=== PATIENT | male | born 1940 | race Caucasian/White ===

== ENCOUNTER 2019-05-25 09:28 | Inpatient (IN) ==
[2019-05-25 11:39] LABS: Basophils % 0.4 % (0.0-0.8); Eosinophils # 0.1 10*3/uL (0.0-0.87); Eosinophils % 1.4 % (0.00-10.9); Hematocrit 35.4 VOL% (42.0-52.0); Hemoglobin 11.5 GM/DL (14.0-18.0); Immature Granulocytes % 0.5 %; Immature Granulocytes Absolute 0.04 #; Lymphocytes # 1.4 10*3/uL (1.4-4.0); Lymphocytes % 17.6 % (21.2-54.2); Mean Corpuscular HGB Conc 32.5 GM/DL (32-36); Mean Corpuscular Volume 94.7 FL (87-102); Mean Platelet Volume 9.5 FL (9.6-12.0); Monocytes % 8.7 % (1.7-12.7); Neutrophils % 71.4 % (38.7-73.9); Platelet Count 241 T/CUMM (130-400); Red Blood Count 3.74 MC/CUMM (3.8-5.5); Red Cell Distribution Width 12.5 % (9.3-17.3); White Blood Count 7.7 T/CUMM (4-12)
[2019-05-25 11:47] LABS: INR 1.1; PT Patient Result 11.9 SECS (9.6-12.2)
[2019-05-25 11:58] LABS: Alanine Aminotransferase 17 U/L (16-61); Albumin 2.9 G/DL (3.4-5.0); Alkaline Phosphatase 99 U/L (45-117); Aspartate Amino Transferase 18 U/L (0-37); Blood Urea Nitrogen 19 MG/DL (7-18); Calcium 8.7 MG/DL (8.5-10.1); Estimated Glom Filtration Rate 76 ML/MIN; Glucose 145 MG/DL (74-106); Osmolality,Calculated 287.1 MOS/KG (273-304)
[2019-05-25 12:05] LABS: Apearance,Urine CLOUDY (Clear); Bilirubin,Urine Negative (Negative); Blood, Urine Small mg/dL (Negative); Glucose,Urine (UA) 50 mg/dL (Negative); Ketones,Urine Negative (Negative); Mucus,Urine Occasional /LPF (Occasional); Nitrite,Urine Negative (Negative); Protein,Urine 30 MG/DL; RBC,Urine 21 /HPF (0-4); Urine Color Yellow (Yellow); Urine Specific Gravity 1.019 (1.001-1.035); WBC,Urine 607 /HPF (0-6)
[2019-05-25 12:11] LABS: Barbiturates Screen,Urine Negative (Negative); Benzodiazepines Screen,Urine Negative (Negative); Cannabinoid Screen,Urine Negative (Negative); Opiate Screen,Urine Negative (Negative); Phencyclidine Screen,Urine Negative (Negative)
[2019-05-25] MEDS ORDERED: cefTRIAXone 1,000 MG in SODIUM CHLORIDE 0.9% 100 ML IV STA (12:16)
[2019-05-25] MEDS ORDERED: DOCUSATE SODIUM 100 MG CAPSULE PO PRN (13:21)
[2019-05-25] MEDS ORDERED: ACETAMINOPHEN 325 MG TABLET PO PRN (13:21)
[2019-05-25] MEDS ORDERED: BISACODYL 5 MG TABLET PO PRN (13:21)
[2019-05-25] MEDS ORDERED: GLUCAGON 1 MG VIAL IM PRN (13:21)
[2019-05-25] MEDS ORDERED: ONDANSETRON 4 MG/2 ML VIAL IV PRN (13:21)
[2019-05-25] MEDS ORDERED: DEXTROSE 10% 25 GM/250 ML BAG IV PRN (13:21)
[2019-05-25] MEDS ORDERED: MAGNESIUM SULF RIDER 4 GM in PREMIX 1 EACH IV PRN (13:24)
[2019-05-25] MEDS ORDERED: MAGNESIUM SULF RIDER 2 GM in PREMIX 1 EACH IV PRN (13:24)
[2019-05-25] MEDS: cefTRIAXone 1,000 MG in SYRINGE 1 EACH IV SCH (13:58)
[2019-05-25] MEDS: SODIUM CHLORIDE 0.9% 1,000 ML IV SCH (13:59)
[2019-05-25] MEDS ORDERED: POTASSIUM CHLORIDE 20 MEQ TABLET PO ONE (15:43)
[2019-05-25] MEDS ORDERED: INFLUENZA VIRUS VACCINE 0.5 ML SYRINGE IM ONE (15:48)
[2019-05-25] MEDS: metFORMIN 500 MG TABLET PO SCH (16:23)
[2019-05-25] MEDS: INSULIN REGULAR 100 UNIT/ML SUBCUT SCH ×2 (17:33→21:09)
[2019-05-25] MEDS: PANTOPRAZOLE 40 MG TABLET PO SCH (21:17)
[2019-05-26 05:05] LABS: Basophils % 0.4 % (0.0-0.8); Eosinophils # 0.2 10*3/uL (0.0-0.87); Eosinophils % 2.8 % (0.00-10.9); Hematocrit 30.7 VOL% (42.0-52.0); Hemoglobin 9.9 GM/DL (14.0-18.0); Immature Granulocytes % 0.5 %; Immature Granulocytes Absolute 0.04 #; Lymphocytes # 1.7 10*3/uL (1.4-4.0); Lymphocytes % 22.4 % (21.2-54.2); Mean Corpuscular HGB Conc 32.2 GM/DL (32-36); Mean Corpuscular Volume 94.5 FL (87-102); Mean Platelet Volume 10.1 FL (9.6-12.0); Monocytes % 9.5 % (1.7-12.7); Neutrophils % 64.4 % (38.7-73.9); Platelet Count 228 T/CUMM (130-400); Red Blood Count 3.25 MC/CUMM (3.8-5.5); Red Cell Distribution Width 12.5 % (9.3-17.3); White Blood Count 7.6 T/CUMM (4-12)
[2019-05-26 05:35] LABS: Calcium 8.4 MG/DL (8.5-10.1); Osmolality,Calculated 288.8 MOS/KG (273-304)
[2019-05-26] MEDS: SODIUM CHLORIDE 0.9% 1,000 ML IV SCH (07:48)
[2019-05-26] MEDS: INSULIN REGULAR 100 UNIT/ML SUBCUT SCH ×4 (07:49→20:23)
[2019-05-26] MEDS ORDERED: PANTOPRAZOLE 40 MG TABLET PO SCH (09:00)
[2019-05-26] MEDS: ATORVASTATIN 40 MG TABLET PO SCH (09:24)
[2019-05-26] MEDS: metFORMIN 500 MG TABLET PO SCH ×2 (09:24→17:05)
[2019-05-26] MEDS: METOPROLOL SUCCINATE XL 50 MG TABLET PO SCH (09:24)
[2019-05-26] MEDS: RIVAROXABAN 15 MG TABLET PO SCH (09:24)
[2019-05-26] MEDS: cefTRIAXone 1,000 MG in SYRINGE 1 EACH IV SCH (14:35)
[2019-05-26] MEDS: TAMSULOSIN 0.4 MG CAPSULE PO SCH (15:05)
[2019-05-26] MEDS ORDERED: VANCOMYCIN INJ 1,000 MG in SODIUM CHLORIDE 0.9% 250 ML IV SCH (16:00)
[2019-05-26] MEDS: PHENAZOPYRIDINE 95 MG TABLET PO SCH ×2 (16:11→16:38)
[2019-05-26] MEDS: PANTOPRAZOLE 40 MG TABLET PO SCH (20:49)
[2019-05-27 05:40] LABS: Calcium 8.4 MG/DL (8.5-10.1); Osmolality,Calculated 286.8 MOS/KG (273-304)
[2019-05-27] MEDS: PHENAZOPYRIDINE 95 MG TABLET PO SCH ×3 (08:31→16:58)
[2019-05-27] MEDS: ATORVASTATIN 40 MG TABLET PO SCH (08:32)
[2019-05-27] MEDS: METOPROLOL SUCCINATE XL 50 MG TABLET PO SCH (08:32)
[2019-05-27] MEDS: metFORMIN 500 MG TABLET PO SCH ×2 (08:32→16:58)
[2019-05-27] MEDS: TAMSULOSIN 0.4 MG CAPSULE PO SCH (08:32)
[2019-05-27] MEDS: RIVAROXABAN 15 MG TABLET PO SCH (08:32)
[2019-05-27] MEDS: INSULIN REGULAR 100 UNIT/ML SUBCUT SCH ×4 (08:37→21:19)
[2019-05-27] MEDS: cefTRIAXone 1,000 MG in SYRINGE 1 EACH IV SCH (14:45)
[2019-05-27] MEDS: NAFCILLIN 2,000 MG in SODIUM CHLORIDE 0.9% 100 ML IV SCH ×3 (16:59→23:55)
[2019-05-27] MEDS: PANTOPRAZOLE 40 MG TABLET PO SCH (21:18)
[2019-05-28] MEDS: NAFCILLIN 2,000 MG in SODIUM CHLORIDE 0.9% 100 ML IV SCH ×4 (04:19→15:05)
[2019-05-28] MEDS: INSULIN REGULAR 100 UNIT/ML SUBCUT SCH ×3 (07:58→17:29)
[2019-05-28] MEDS: PHENAZOPYRIDINE 95 MG TABLET PO SCH ×3 (08:52→17:28)
[2019-05-28] MEDS: metFORMIN 500 MG TABLET PO SCH ×2 (08:52→17:25)
[2019-05-28] MEDS: ATORVASTATIN 40 MG TABLET PO SCH (08:52)
[2019-05-28] MEDS: TAMSULOSIN 0.4 MG CAPSULE PO SCH (08:53)
[2019-05-28] MEDS: RIVAROXABAN 15 MG TABLET PO SCH (08:53)
[2019-05-28] MEDS: METOPROLOL SUCCINATE XL 50 MG TABLET PO SCH (08:53)
[2019-05-28 15:58] VITALS: BP 120/58
== END 2019-05-28 18:18 | DRG 689 ==
LOC: EDBD → EDUNIT# → N.ED 09:28 → N.EDINP 13:21 → SUATTDRO 13:21 → N.EDINP 14:51 → N.2E 15:02
PROVIDERS: ADMIT Internal Medicine; ATTEND Internal Medicine Nephrology

== ENCOUNTER 2019-08-21 20:04 | Inpatient (IN) ==
[2019-08-21] MEDS ORDERED: DIPH/TET/ACEL PERT BOOSTER VACCINE 0.5 ML VIAL IM ONE (20:39)
[2019-08-21] MEDS ORDERED: ceFAZolin 1,000 MG VIAL IM ONE (20:39)
[2019-08-21] MEDS ORDERED: SODIUM CHLORIDE 0.9% 500 ML IV STA (21:57)
[2019-08-21] MEDS ORDERED: ONDANSETRON 4 MG/2 ML VIAL IV STA (21:57)
[2019-08-21 22:06] LABS: Basophils % 0.4 % (0.0-0.8); Hematocrit 37.1 VOL% (42.0-52.0); Hemoglobin 12.3 GM/DL (14.0-18.0); Immature Granulocytes % 0.5 %; Immature Granulocytes Absolute 0.06 #; Lymphocytes # 0.8 10*3/uL (1.4-4.0); Lymphocytes % 6.9 % (21.2-54.2); Mean Corpuscular HGB Conc 33.2 GM/DL (32-36); Mean Corpuscular Volume 95.6 FL (87-102); Mean Platelet Volume 11.5 FL (9.6-12.0); Monocytes % 6.5 % (1.7-12.7); Neutrophils % 85.7 % (38.7-73.9); Platelet Count 171 T/CUMM (130-400); Red Blood Count 3.88 MC/CUMM (3.8-5.5); Red Cell Distribution Width 12.1 % (9.3-17.3)
[2019-08-21 22:15] LABS: INR 1.7
[2019-08-21 22:27] LABS: Platelet Estimate Normal
[2019-08-21 22:29] LABS: Microcytosis Slight
[2019-08-21 23:31] LABS: Apearance,Urine CLEAR (Clear); Bacteria,Urine Occasional /HPF (Few); Bilirubin,Urine Negative (Negative); Blood, Urine Negative (Negative); Glucose,Urine (UA) Negative (Negative); Ketones,Urine 5 mg/dL (Negative); Mucus,Urine Occasional /LPF (Occasional); Nitrite,Urine Negative (Negative); Protein,Urine Negative; Squamous Epithelial Cell,Urine Occasional /HPF (0-10); Urine Color Yellow (Yellow); WBC,Urine 1 /HPF (0-6)
[2019-08-21] MEDS ORDERED: ZALEPLON 5 MG CAPSULE PO PRN (23:40)
[2019-08-21] MEDS ORDERED: ONDANSETRON 4 MG/2 ML VIAL IV PRN (23:40)
[2019-08-21] MEDS ORDERED: PROMETHAZINE 25 MG TABLET PO PRN (23:40)
[2019-08-21] MEDS ORDERED: diphenhydrAMINE CAP 25 MG CAPSULE PO PRN (23:40)
[2019-08-21] MEDS ORDERED: ACETAMINOPHEN 325 MG TABLET PO PRN (23:40)
[2019-08-21] MEDS ORDERED: guaiFENesin/DM ER 600-30 MG TABLET PO PRN (23:40)
[2019-08-21] MEDS ORDERED: DOCUSATE SODIUM 100 MG CAPSULE PO PRN (23:40)
[2019-08-22 01:14] LABS: Basophils % 0.3 % (0.0-0.8); Eosinophils % 0.1 % (0.00-10.9); Hematocrit 33.8 VOL% (42.0-52.0); Hemoglobin 11.2 GM/DL (14.0-18.0); Immature Granulocytes % 0.4 %; Immature Granulocytes Absolute 0.04 #; Lymphocytes # 1.1 10*3/uL (1.4-4.0); Mean Corpuscular HGB Conc 33.1 GM/DL (32-36); Mean Corpuscular Volume 95.5 FL (87-102); Mean Platelet Volume 10.2 FL (9.6-12.0); Monocytes % 6.6 % (1.7-12.7); Neutrophils % 80.6 % (38.7-73.9); Platelet Count 158 T/CUMM (130-400); Red Blood Count 3.54 MC/CUMM (3.8-5.5); Red Cell Distribution Width 11.6 % (9.3-17.3)
[2019-08-22] MEDS ORDERED: hydrALAZINE 20 MG/1 ML VIAL IV PRN (01:21)
[2019-08-22] MEDS ORDERED: GLUCAGON 1 MG VIAL IM PRN (01:25)
[2019-08-22] MEDS ORDERED: DEXTROSE 50% 25 GM/50 ML VIAL IV PRN (01:25)
[2019-08-22 01:29] LABS: Osmolality,Calculated 287.1 MOS/KG (273-304)
[2019-08-22 01:57] LABS: Albumin 2.7 G/DL (3.4-5.0); Bilirubin,Total 0.7 MG/DL (0.2-1.0); Osmolality,Calculated 283.4 MOS/KG (273-304); Total Protein 6.2 G/DL (6.4-8.3)
[2019-08-22] MEDS: INSULIN LISPRO 100 UNIT/ML SUBCUT SCH ×4 (07:53→20:51)
[2019-08-22] MEDS ORDERED: PANTOPRAZOLE 40 MG TABLET PO SCH (09:00)
[2019-08-22] MEDS ORDERED: ceFAZolin 1,000 MG in SYRINGE 1 EACH IV ONE (12:00)
[2019-08-22] MEDS ORDERED: LIDOCAINE 2% 5 ML VIAL ONE (13:09)
[2019-08-22] MEDS ORDERED: SUCCINYLCHOLINE 200 MG/10 ML VIAL ONE (13:09)
[2019-08-22] MEDS ORDERED: ETOMIDATE 40 MG/20 ML VIAL IV ONE (13:09)
[2019-08-22] MEDS ORDERED: ACETAMINOPHEN 1,000 MG/100 ML VIAL IV ONE (13:09)
[2019-08-22] MEDS ORDERED: ROCURONIUM 100 MG/10 ML VIAL IV ONE (13:09)
[2019-08-22] MEDS ORDERED: SEVOFLURANE 1 UNIT/15 MINUTE INH ONE (13:09)
[2019-08-22] MEDS ORDERED: fentaNYL 100 MCG/2 ML VIAL ONE (13:09)
[2019-08-22] MEDS ORDERED: ONDANSETRON 4 MG/2 ML VIAL ONE (13:09)
[2019-08-22] MEDS: ceFAZolin 1,000 MG in SYRINGE 1 EACH IV SCH ×2 (15:11→23:40)
[2019-08-22] MEDS: POTASSIUM CHLORIDE 20 MEQ TABLET PO PRN ×3 (15:11→20:47)
[2019-08-22] MEDS: TAMSULOSIN 0.4 MG CAPSULE PO SCH (15:11)
[2019-08-22] MEDS ORDERED: metFORMIN 500 MG TABLET PO SCH (17:00)
[2019-08-22] MEDS: ATORVASTATIN 40 MG TABLET PO SCH (20:46)
[2019-08-23 05:53] LABS: Basophils % 0.5 % (0.0-0.8); Eosinophils # 0.1 10*3/uL (0.0-0.87); Eosinophils % 1.4 % (0.00-10.9); Hematocrit 33.2 VOL% (42.0-52.0); Immature Granulocytes % 0.3 %; Immature Granulocytes Absolute 0.02 #; Lymphocytes % 12.5 % (21.2-54.2); Mean Corpuscular HGB Conc 33.1 GM/DL (32-36); Mean Corpuscular Volume 94.9 FL (87-102); Mean Platelet Volume 10.6 FL (9.6-12.0); Monocytes % 6.8 % (1.7-12.7); Neutrophils % 78.5 % (38.7-73.9); Platelet Count 159 T/CUMM (130-400); Red Cell Distribution Width 11.8 % (9.3-17.3); White Blood Count 7.8 T/CUMM (4-12)
[2019-08-23 06:09] LABS: Calcium 7.8 MG/DL (8.5-10.1); Osmolality,Calculated 284.3 MOS/KG (273-304)
[2019-08-23] MEDS: INSULIN LISPRO 100 UNIT/ML SUBCUT SCH ×4 (08:07→21:03)
[2019-08-23] MEDS: ceFAZolin 1,000 MG in SYRINGE 1 EACH IV SCH (09:12)
[2019-08-23] MEDS: TAMSULOSIN 0.4 MG CAPSULE PO SCH (10:12)
[2019-08-23] MEDS: METOPROLOL SUCCINATE XL 50 MG TABLET PO SCH (10:12)
[2019-08-23] MEDS: PANTOPRAZOLE 40 MG TABLET PO SCH (10:12)
[2019-08-23] MEDS: RIVAROXABAN 15 MG TABLET PO SCH (10:12)
[2019-08-23] MEDS ORDERED: POTASSIUM CHLORIDE 20 MEQ TABLET PO ONE (16:08)
[2019-08-23] MEDS: ATORVASTATIN 40 MG TABLET PO SCH (21:04)
[2019-08-23] MEDS: ZINC OXIDE PASTE 113 GM TUBE TOP SCH (21:06)
[2019-08-24 06:11] LABS: Basophils % 0.4 % (0.0-0.8); Eosinophils # 0.2 10*3/uL (0.0-0.87); Hematocrit 30.7 VOL% (42.0-52.0); Hemoglobin 10.3 GM/DL (14.0-18.0); Immature Granulocytes % 0.4 %; Immature Granulocytes Absolute 0.03 #; Lymphocytes # 1.1 10*3/uL (1.4-4.0); Lymphocytes % 13.2 % (21.2-54.2); Mean Corpuscular HGB Conc 33.6 GM/DL (32-36); Mean Corpuscular Volume 94.8 FL (87-102); Mean Platelet Volume 10.3 FL (9.6-12.0); Platelet Count 157 T/CUMM (130-400); Red Blood Count 3.24 MC/CUMM (3.8-5.5); Red Cell Distribution Width 11.6 % (9.3-17.3)
[2019-08-24 06:21] LABS: Calcium 7.7 MG/DL (8.5-10.1); Osmolality,Calculated 278.5 MOS/KG (273-304)
[2019-08-24] MEDS ORDERED: POTASSIUM CHLORIDE 20 MEQ TABLET PO ONE ×2 (08:05→11:59)
[2019-08-24] MEDS: INSULIN LISPRO 100 UNIT/ML SUBCUT SCH ×2 (09:02→11:25)
[2019-08-24] MEDS: TAMSULOSIN 0.4 MG CAPSULE PO SCH (09:23)
[2019-08-24] MEDS: METOPROLOL SUCCINATE XL 50 MG TABLET PO SCH (09:23)
[2019-08-24] MEDS: PANTOPRAZOLE 40 MG TABLET PO SCH (09:23)
[2019-08-24] MEDS: RIVAROXABAN 15 MG TABLET PO SCH (09:23)
[2019-08-24] MEDS: ZINC OXIDE PASTE 113 GM TUBE TOP SCH (11:31)
[2019-08-24 13:04] VITALS: BP 146/45
== END 2019-08-24 15:50 | DRG 481 ==
LOC: EDUNIT# → EDBD → N.ED 20:04 → N.EDINP 23:40 → N.3E 08-22 00:40
PROVIDERS: ADMIT Internal Medicine; ATTEND Internal Medicine

== ENCOUNTER 2019-12-02 09:19 | Inpatient (IN) ==
[2019-12-02] MEDS ORDERED: SODIUM CHLORIDE 0.9% 500 ML IV STA (09:41)
[2019-12-02 10:35] LABS: Hematocrit 37.7 VOL% (42.0-52.0); Hemoglobin 12.2 GM/DL (14.0-18.0); Mean Corpuscular HGB Conc 32.4 GM/DL (32-36); Mean Corpuscular Volume 93.8 FL (87-102); Red Blood Count 4.02 MC/CUMM (3.8-5.5); Red Cell Distribution Width 12.6 % (9.3-17.3); White Blood Count 8.3 T/CUMM (4-12)
[2019-12-02 10:36] LABS: Basophils % 0.4 % (0.0-0.8); Eosinophils # 0.1 10*3/uL (0.0-0.87); Eosinophils % 1.2 % (0.00-10.9); Immature Granulocytes % 0.5 %; Immature Granulocytes Absolute 0.04 #; Lymphocytes # 1.2 10*3/uL (1.4-4.0); Lymphocytes % 14.4 % (21.2-54.2); Mean Platelet Volume 9.8 FL (9.6-12.0); Monocytes % 5.4 % (1.7-12.7); Neutrophils % 78.1 % (38.7-73.9); Platelet Count 207 T/CUMM (130-400)
[2019-12-02 10:42] LABS: Apearance,Urine CLEAR (Clear); Bilirubin,Urine Negative (Negative); Blood, Urine Small mg/dL (Negative); Glucose,Urine (UA) Negative (Negative); Ketones,Urine Negative (Negative); Mucus,Urine Occasional /LPF (Occasional); Nitrite,Urine Negative (Negative); Protein,Urine Negative; RBC,Urine 4 /HPF (0-4); Urine Color Yellow (Yellow); Urine Urobilinogen < 2.0 EU/DL (0.2-1.0); WBC,Urine <1 /HPF (0-6)
[2019-12-02 10:48] LABS: INR 1.3; PT Patient Result 13.3 SECS (9.8-11.9); Partial Thromboplastin Time 40.2 SECS (23.9-33.8)
[2019-12-02 10:51] LABS: Barbiturates Screen,Urine Negative (Negative); Benzodiazepines Screen,Urine Negative (Negative); Cannabinoid Screen,Urine Negative (Negative); Opiate Screen,Urine Negative (Negative); Phencyclidine Screen,Urine Negative (Negative)
[2019-12-02 12:19] LABS: Alanine Aminotransferase 19 U/L (16-61); Albumin 3.4 G/DL (3.4-5.0); Alkaline Phosphatase 107 U/L (45-117); Aspartate Amino Transferase 18 U/L (0-37); Blood Urea Nitrogen 16 MG/DL (7-18); Calcium 8.3 MG/DL (8.5-10.1); Estimated Glom Filtration Rate 0 ML/MIN; Ferritin 360.4 ng/ml (26-388); Glucose 103 MG/DL (74-106); Osmolality,Calculated 275.7 MOS/KG (273-304); Total Protein 7.3 G/DL (6.4-8.3); Troponin I < 0.015 NG/ML (0.00-0.045)
[2019-12-02] MEDS ORDERED: LABETALOL 20 MG/4 ML SYRINGE IV PRN (13:29)
[2019-12-02] MEDS ORDERED: DOCUSATE SODIUM 100 MG CAPSULE PO PRN (13:50)
[2019-12-02 14:04] LABS: VLDL CHOLESTEROL 22.2 MG/DL
[2019-12-02] MEDS: ENOXAPARIN 40 MG/0.4 ML SYRINGE SUBCUT SCH (14:15)
[2019-12-03] MEDS: RIVAROXABAN 15 MG TABLET PO SCH (08:59)
[2019-12-03] MEDS: METOPROLOL SUCCINATE XL 50 MG TABLET PO SCH (08:59)
[2019-12-03] MEDS: ASPIRIN 325 MG TABLET PO SCH (08:59)
[2019-12-03] MEDS: ATORVASTATIN 40 MG TABLET PO SCH (08:59)
[2019-12-03] MEDS: TAMSULOSIN 0.4 MG CAPSULE PO SCH (08:59)
[2019-12-03] MEDS: PANTOPRAZOLE 40 MG TABLET PO SCH (08:59)
[2019-12-03] MEDS: ENOXAPARIN 40 MG/0.4 ML SYRINGE SUBCUT SCH (13:18)
[2019-12-03] MEDS ORDERED: LORazepam 2 MG/1 ML VIAL IV PRN (22:32)
[2019-12-03] MEDS ORDERED: LORazepam 2 MG/1 ML VIAL ONE (22:34)
[2019-12-04] MEDS: ASPIRIN 325 MG TABLET PO SCH (09:29)
[2019-12-04] MEDS: PANTOPRAZOLE 40 MG TABLET PO SCH (09:30)
[2019-12-04] MEDS: TAMSULOSIN 0.4 MG CAPSULE PO SCH (09:30)
[2019-12-04] MEDS: ATORVASTATIN 40 MG TABLET PO SCH (09:30)
[2019-12-04] MEDS: RIVAROXABAN 15 MG TABLET PO SCH (09:30)
[2019-12-04] MEDS: METOPROLOL SUCCINATE XL 50 MG TABLET PO SCH (09:30)
[2019-12-04] MEDS: ENOXAPARIN 40 MG/0.4 ML SYRINGE SUBCUT SCH (14:03)
[2019-12-04] MEDS: QUEtiapine 25 MG TABLET PO SCH (21:01)
[2019-12-05] MEDS: RIVAROXABAN 15 MG TABLET PO SCH (10:38)
[2019-12-05] MEDS: METOPROLOL SUCCINATE XL 50 MG TABLET PO SCH (10:38)
[2019-12-05] MEDS: POTASSIUM CHLORIDE 20 MEQ TABLET PO SCH ×2 (10:38→21:42)
[2019-12-05] MEDS: ATORVASTATIN 40 MG TABLET PO SCH (10:38)
[2019-12-05] MEDS: PANTOPRAZOLE 40 MG TABLET PO SCH (10:38)
[2019-12-05] MEDS: ASPIRIN 325 MG TABLET PO SCH (10:39)
[2019-12-05] MEDS: TAMSULOSIN 0.4 MG CAPSULE PO SCH (10:39)
[2019-12-05] MEDS: QUEtiapine 25 MG TABLET PO SCH (21:44)
[2019-12-06] MEDS: ATORVASTATIN 40 MG TABLET PO SCH (09:20)
[2019-12-06] MEDS: ASPIRIN 325 MG TABLET PO SCH (09:20)
[2019-12-06] MEDS: TAMSULOSIN 0.4 MG CAPSULE PO SCH (09:20)
[2019-12-06] MEDS: RIVAROXABAN 15 MG TABLET PO SCH (09:21)
[2019-12-06] MEDS: METOPROLOL SUCCINATE XL 50 MG TABLET PO SCH (09:21)
[2019-12-06] MEDS: PANTOPRAZOLE 40 MG TABLET PO SCH (09:21)
[2019-12-06] MEDS: QUEtiapine 25 MG TABLET PO SCH (21:42)
[2019-12-07] MEDS: RIVAROXABAN 15 MG TABLET PO SCH (09:30)
[2019-12-07] MEDS: METOPROLOL SUCCINATE XL 50 MG TABLET PO SCH (09:30)
[2019-12-07] MEDS: ATORVASTATIN 40 MG TABLET PO SCH (09:30)
[2019-12-07] MEDS: ASPIRIN 325 MG TABLET PO SCH (09:30)
[2019-12-07] MEDS: TAMSULOSIN 0.4 MG CAPSULE PO SCH (09:30)
[2019-12-07] MEDS: PANTOPRAZOLE 40 MG TABLET PO SCH (09:30)
[2019-12-07] MEDS: QUEtiapine 25 MG TABLET PO SCH (21:45)
[2019-12-08] MEDS: ASPIRIN 325 MG TABLET PO SCH (10:00)
[2019-12-08] MEDS: METOPROLOL SUCCINATE XL 50 MG TABLET PO SCH (10:00)
[2019-12-08] MEDS: ATORVASTATIN 40 MG TABLET PO SCH (10:00)
[2019-12-08] MEDS: PANTOPRAZOLE 40 MG TABLET PO SCH (10:00)
[2019-12-08] MEDS: TAMSULOSIN 0.4 MG CAPSULE PO SCH (10:00)
[2019-12-08] MEDS: RIVAROXABAN 15 MG TABLET PO SCH (10:00)
[2019-12-08] MEDS: QUEtiapine 25 MG TABLET PO SCH (21:06)
[2019-12-09 09:21] LABS: Basophils % 0.5 % (0.0-0.8); Eosinophils # 0.1 10*3/uL (0.0-0.87); Eosinophils % 1.1 % (0.00-10.9); Hematocrit 39.5 VOL% (42.0-52.0); Hemoglobin 12.8 GM/DL (14.0-18.0); Immature Granulocytes % 0.2 %; Immature Granulocytes Absolute 0.02 #; Lymphocytes # 1.3 10*3/uL (1.4-4.0); Lymphocytes % 15.7 % (21.2-54.2); Mean Corpuscular HGB Conc 32.4 GM/DL (32-36); Mean Corpuscular Volume 92.9 FL (87-102); Mean Platelet Volume 9.6 FL (9.6-12.0); Monocytes % 5.6 % (1.7-12.7); Neutrophils % 76.9 % (38.7-73.9); Platelet Count 229 T/CUMM (130-400); Red Blood Count 4.25 MC/CUMM (3.8-5.5); Red Cell Distribution Width 12.4 % (9.3-17.3); White Blood Count 8.1 T/CUMM (4-12)
[2019-12-09 09:32] LABS: Osmolality,Calculated 278.8 MOS/KG (273-304)
[2019-12-09] MEDS: RIVAROXABAN 15 MG TABLET PO SCH (09:49)
[2019-12-09] MEDS: ATORVASTATIN 40 MG TABLET PO SCH (09:49)
[2019-12-09] MEDS: ASPIRIN CHEW 81 MG TABLET PO SCH (09:49)
[2019-12-09] MEDS: METOPROLOL SUCCINATE XL 50 MG TABLET PO SCH (09:50)
[2019-12-09] MEDS: TAMSULOSIN 0.4 MG CAPSULE PO SCH (09:50)
[2019-12-09] MEDS: PANTOPRAZOLE 40 MG TABLET PO SCH (09:50)
[2019-12-09] MEDS: QUEtiapine 25 MG TABLET PO SCH (20:55)
[2019-12-10] MEDS: RIVAROXABAN 15 MG TABLET PO SCH (09:02)
[2019-12-10] MEDS: PANTOPRAZOLE 40 MG TABLET PO SCH (09:02)
[2019-12-10] MEDS: ATORVASTATIN 40 MG TABLET PO SCH (09:03)
[2019-12-10] MEDS: METOPROLOL SUCCINATE XL 50 MG TABLET PO SCH (09:03)
[2019-12-10] MEDS: ASPIRIN CHEW 81 MG TABLET PO SCH (09:03)
[2019-12-10] MEDS: TAMSULOSIN 0.4 MG CAPSULE PO SCH (09:03)
[2019-12-10] MEDS ORDERED: TUBERCULIN SKIN TEST 0.1 ML SYRINGE INTRADERM ONE ×2 (09:09→10:06)
[2019-12-10] MEDS ORDERED: POTASSIUM CHLORIDE 20 MEQ TABLET PO ONE (10:35)
[2019-12-10] MEDS ORDERED: lisinopriL 5 MG TABLET PO SCH (11:00)
[2019-12-10 12:14] VITALS: BP 133/72
== END 2019-12-10 16:25 | DRG 69 ==
LOC: EDUNIT# → EDBD → N.EDINP 09:19 → N.ED 09:19 → N.EDINP 14:55 → N.TELES 14:56 → SUATTDRO 12-06 15:59
PROVIDERS: ADMIT Internal Medicine; ATTEND Internal Medicine